=== PATIENT | male | born 1985 | race Caucasian/White ===

== ENCOUNTER 2017-05-18 20:35 | Inpatient (IN) | payer MEDICAID ==
[~2017-05-18] VITALS: Ht 198.1 cm; Wt 72.6 kg
--- NOTE | 2017-05-18 20:33 | Emergency Room Report ---
History of Present Illness General Chief Complaint: Abdominal Pain Source: Patient Present Illness HPI Patient is a 32-year-old male who presented after increased left-sided abdominal pain. Patient gradual onset of symptoms. Patient reported having a pain which did not radiate. Patient reports having prior history of ulcer disease. He stated that he had eaten some spicy food and pizza which exacerbated the pain. Patient denied any diarrhea or bloody stools. He denied hematemesis or patient reports having had an energy drink earlier in the day. Patient had a fever. He denied any leg pain or swelling. He denied any chest pain. Allergies: Coded Allergies: ERYTHROMYCIN BASE (Verified Allergy, Unknown, 05/18/17) PENICILLINS (Verified Allergy, Unknown, 05/18/17) Patient History Past Medical History: see triage record Reviewed Nursing Documentation: PMH: Agreed, PSxH: Agreed Nursing Documentation-PMH Past Medical History: No Stated History Review of Systems All Other Systems: negative except mentioned in HPI Physical Exam Vital Signs Date Time Temp Pulse Resp B/P Pulse Ox O2 Delivery O2 Flow Rate FiO2 05/18/17 20:16 98.1 82 16 120/80 98 Room Air Sp02 EP Interpretation: reviewed, normal General Appearance: normal inspection, well appearing, no apparent distress, alert, GCS 15, non-toxic Head: atraumatic ENT: normal ENT inspection, hearing grossly normal, normal voice Neck: normal inspection, full range of motion, supple, no bony tend Respiratory: normal inspection, lungs clear, normal breath sounds, no respiratory distress, no retraction, no wheezing Cardiovascular #1: regular rate, rhythm, no edema Gastrointestinal: normal inspection, non tender, soft, non-distended, no guarding, no hernia, abnormal bowel sounds - increased Genitourinary: no CVA tenderness Musculoskeletal: normal inspection, back normal, normal range of motion Neurologic: normal inspection, alert, oriented x3, responsive, 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 Differential diagnoses included ischemic bowel, appendicitis, perforated viscus, abdominal aortic aneurysm, inferior myocardial infarction, viral gastroenteritis Because of complexity of patient's case laboratory testing and imaging studies were ordered. The patient was given IV antiemetics as well as IV fluids. 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 He was noted to have intermittent PVCs. Patient was given IV magnesium. A CT imaging of the abdomen pelvis showed gastric distention. The patient noted to have some anemia on laboratory testing.Dr. Hickman was contacted for inpatient management due to need for inpatient monitoring and treatment due to persistent pain. Labs Test 05/18/17 20:55 05/19/17 00:00 White Blood Count 10.3 K/UL (4.8-10.8) Red Blood Count 3.74 M/UL (4.70-6.10) Hemoglobin 9.9 G/DL (14.2-18.0) Hematocrit 30.4 % (42.0-52.0) Mean Corpuscular Volume 81 FL (80-99) Mean Corpuscular Hemoglobin 26.5 PG (27.0-31.0) Mean Corpuscular Hemoglobin Concent 32.6 G/DL (32.0-36.0) Red Cell Distribution Width 15.8 % (11.6-14.8) Platelet Count 561 K/UL (150-450) Mean Platelet Volume 5.5 FL (6.5-10.1) Neutrophils (%) (Auto) 72.7 % (45.0-75.0) Lymphocytes (%) (Auto) 19.8 % (20.0-45.0) Monocytes (%) (Auto) 5.9 % (1.0-10.0) Eosinophils (%) (Auto) 1.0 % (0.0-3.0) Basophils (%) (Auto) 0.5 % (0.0-2.0) Sodium Level 135 mEQ/L (135-145) Potassium Level 4.2 mEQ/L (3.4-4.9) Chloride Level 94 mEQ/L (98-107) Carbon Dioxide Level 30 mEQ/L (20-30) Anion Gap 11 (5-15) Blood Urea Nitrogen 13 mg/dL (7-23) Creatinine 1.1 mg/dL (0.7-1.2) Estimat Glomerular Filtration Rate > 60 mL/min (>60) Glucose Level 138 mg/dL (74-106) Calcium Level 9.6 mg/dL (8.6-10.2) Total Bilirubin < 0.2 mg/dL (0.0-1.2) Aspartate Amino Transf (AST/SGOT) 13 U/L (5-40) Alanine Aminotransferase (ALT/SGPT) 10 U/L (3-41) Alkaline Phosphatase 64 U/L (40-129) Total Protein 7.2 g/dL (6.6-8.7) Albumin 4.5 g/dL (3.5-5.2) Globulin 2.7 g/dL Albumin/Globulin Ratio 1.6 (1.0-2.7) Lipase 26 U/L (< 60) Urine Color Pale yellow Urine Appearance Slightly cloudy Urine pH 9 (4.5-8.0) Urine Specific [place] 1.015 (1.005-1.035) Urine Protein Negative (NEGATIVE) Urine Glucose (UA) Negative (NEGATIVE) Urine Ketones Negative (NEGATIVE) Urine Occult Blood Negative (NEGATIVE) Urine Nitrite Negative (NEGATIVE) Urine Bilirubin Negative (NEGATIVE) Urine Urobilinogen Normal MG/DL (0.0-1.0) Urine Leukocyte Esterase Negative (NEGATIVE) Urine Opiates Screen Negative (NEGATIVE) Urine Barbiturates Screen Negative (NEGATIVE) Phencyclidine (PCP) Screen Negative (NEGATIVE) Urine Amphetamines Screen Positive (NEGATIVE) Urine Benzodiazepines Screen Negative (NEGATIVE) Urine Cocaine Screen Negative (NEGATIVE) Urine Marijuana (THC) Screen Negative (NEGATIVE) Last Vital Signs Date Time Temp Pulse Resp B/P Pulse Ox O2 Delivery O2 Flow Rate FiO2 05/18/17 20:16 98.1 82 16 120/80 98 Room Air Status: unchanged Disposition: ADMITTED INPATIENT Condition: Catalino Torres May 18, 2017 20:33
[2017-05-18 20:40] VITALS: BP 128/78
[2017-05-18] MEDS ORDERED: Dicyclomine HCl 10mg/5ml oral soln ORAL ONE (21:00)
[2017-05-18] MEDS ORDERED: Famotidine 20 MG/ 2ML VIAL IVP ONE (21:00)
[2017-05-18 21:09] LABS: BASOPHILS % (AUTO) 0.5 % (0.0-2.0); LYMPHOCYTES % (AUTO) 19.8 % (20.0-45.0); MEAN CORPUSCULAR HEMOGLOBIN 26.5 PG (27.0-31.0); MEAN CORPUSCULAR HGB CONC 32.6 G/DL (32.0-36.0); MEAN CORPUSCULAR VOLUME 81 FL (80-99); MEAN PLATELET VOLUME 5.5 FL (6.5-10.1); MONOCYTES % (AUTO) 5.9 % (1.0-10.0); NEUTROPHILS % (AUTO) 72.7 % (45.0-75.0); PLATELET COUNT 561 K/UL (150-450); RED BLOOD COUNT 3.74 M/UL (4.70-6.10); RED CELL DISTRIBUTION WIDTH 15.8 % (11.6-14.8); WHITE BLOOD COUNT 10.3 K/UL (4.8-10.8)
[2017-05-18 21:44] LABS: ALANINE AMINOTRANSFERASE 10 U/L (3-41); ALBUMIN/GLOBULIN RATIO 1.6 (1.0-2.7); ANION GAP 11 (5-15); ASPARTATE AMINO TRANSFERASE 13 U/L (5-40); CALCIUM 9.6 mg/dL (8.6-10.2); CARBON DIOXIDE 30 mEQ/L (20-30); CHLORIDE 94 mEQ/L (98-107); CREATININE 1.1 mg/dL (0.7-1.2); GLOMERULAR FILTRATION RATE > 60 mL/min (>60); HEMOLYSIS 5; LIPASE 26 U/L (< 60); POTASSIUM 4.2 mEQ/L (3.4-4.9); SODIUM 135 mEQ/L (135-145); TOTAL PROTEIN 7.2 g/dL (6.6-8.7)
[2017-05-18 22:00] VITALS: BP 140/69
[2017-05-18] MEDS ORDERED: Morphine Sulfate 4mg/ml Inj IVP ONE (23:45)
[2017-05-19] VITALS (8 sets, daily range): BP systolic 129–139; BP diastolic 76–96
[2017-05-19 00:44] LABS: APPEARANCE,URINE SLIGHTLY CLOUDY; KETONES,URINE NEGATIVE (NEGATIVE); LEUKOCYTE ESTERASE ,URINE NEGATIVE (NEGATIVE); NITRITE,URINE NEGATIVE (NEGATIVE); PH,URINE 9 (4.5-8.0); PROTEIN,URINE NEGATIVE (NEGATIVE); UROBILINOGEN,URINE NORMAL MG/DL (0.0-1.0)
[2017-05-19] MEDS ORDERED: NEXIUM40 MG ORAL (01:24)
[2017-05-19] MEDS: D5NS 1,000 ML IV SCH ×2 (03:49→17:37)
--- NOTE | 2017-05-19 07:51 | General Progress Note ---
Assessment/Plan Problem List: (1) Anemia ICD Codes: D64.9 - Anemia, unspecified SNOMED: 628102299 (2) Abdominal pain ICD Codes: R10.9 - Unspecified abdominal pain SNOMED: 16629812 (3) Cardiac arrhythmia ICD Codes: I49.9 - Cardiac arrhythmia, unspecified SNOMED: 358024971 Assessment/Plan fu ct report anemia work up ppi EGD in am Subjective ROS Limited/Unobtainable: Yes Allergies: Coded Allergies: ERYTHROMYCIN BASE (Verified Allergy, Unknown, 05/18/17) PENICILLINS (Verified Allergy, Unknown, 05/18/17) Subjective abd pain Objective Last 24 Hour Vital Signs Date Time Temp Pulse Resp B/P Pulse Ox O2 Delivery O2 Flow Rate FiO2 05/19/17 04:00 79 05/19/17 04:00 97.3 85 20 135/90 98 Room Air 05/19/17 02:26 97.3 05/19/17 01:50 97.3 68 16 133/78 98 Room Air 05/19/17 01:50 97.3 68 16 133/78 98 Room Air 05/19/17 01:47 98.5 74 17 132/94 98 Room Air 05/19/17 00:45 98.2 79 16 132/81 98 Room Air 05/18/17 22:00 98.4 86 19 140/69 98 Room Air 05/18/17 20:40 98.1 88 18 128/78 98 Room Air 05/18/17 20:16 98.1 82 16 120/80 98 Room Air Intake and Output 05/18/17 05/19/17 19:00 07:00 Intake Total 210 ml Balance 210 ml Intake Oral 60 ml IV Total 150 ml Laboratory Tests 05/18/17 20:55: White Blood Count 10.3, Red Blood Count 3.74L, Hemoglobin 9.9L, Hematocrit 30.4L , Mean Corpuscular Volume 81, Mean Corpuscular Hemoglobin 26.5L, Mean Corpuscular Hemoglobin Concent 32.6, Red Cell Distribution Width 15.8H, Platelet Count 561H, Mean Platelet Volume 5.5L, Neutrophils (%) (Auto) 72.7, Lymphocytes (%) (Auto) 19.8L, Monocytes (%) (Auto) 5.9, Eosinophils (%) (Auto) 1.0, Basophils (%) (Auto) 0.5, Sodium Level 135, Potassium Level 4.2, Chloride Level 94L, Carbon Dioxide Level 30, Anion Gap 11, Blood Urea Nitrogen 13, Creatinine 1.1, Estimat Glomerular Filtration Rate > 60, Glucose Level 138H, Calcium Level 9.6, Total Bilirubin < 0.2, Aspartate Amino Transf (AST/SGOT) 13, Alanine Aminotransferase (ALT/SGPT) 10, Alkaline Phosphatase 64, Total Protein 7.2, Albumin 4.5, Globulin 2.7, Albumin/Globulin Ratio 1.6, Lipase 26 05/19/17 00:00: Urine Color Pale yellow, Urine Appearance Slightly cloudy, Urine pH 9, Urine Specific [place] 1.015, Urine Protein Negative, Urine Glucose (UA) Negative, Urine Ketones Negative, Urine Occult Blood Negative, Urine Nitrite Negative, Urine Bilirubin Negative, Urine Urobilinogen Normal, Urine Leukocyte Esterase Negative, Urine Opiates Screen Negative, Urine Barbiturates Screen Negative, Phencyclidine (PCP) Screen Negative, Urine Amphetamines Screen PositiveH, Urine Benzodiazepines Screen Negative, Urine Cocaine Screen Negative, Urine Marijuana (THC) Screen Negative 05/19/17 06:50: Troponin I [Pending] Height (Feet): 6 Height (Inches): 6.00 Weight (Pounds): 160 General Appearance: alert EENT: normal ENT inspection Neck: supple Cardiovascular: normal peripheral pulses Respiratory/Chest: lungs clear Abdomen: decreased bowel sounds, tender Extremities: non-tender DIGNA REYNA May 19, 2017 07:51
[2017-05-19 08:07] LABS: TROPONIN I < 0.30 ng/mL (<=0.30)
--- NOTE | 2017-05-19 08:07 | History & Physical ---
History and Physical History & Physicial HP completed. Dictation #[id number] Tea Hickman MD May 19, 2017 08:07
[2017-05-19] MEDS: Heparin 5000 units/ml inj SUBQ SCH ×2 (09:00→21:00)
--- NOTE | 2017-05-19 09:29 | Diagnostic Imaging Report ---
Indication: Shortness of breath Technique: XRAY CHEST 1 V Comparison: None Findings: The cardiomediastinal silhouette is within normal limits. There is no focal consolidation, pneumothorax or pleural effusion. Osseous structures demonstrate no acute abnormality. Impression: No acute cardiopulmonary disease.
[2017-05-19] MEDS: Morphine Sulfate 2mg/ml Inj IVP PRN ×2 (09:43→17:49)
[2017-05-19] MEDS: Acetaminophen 500mg (ES) tab ORAL PRN ×2 (15:00→21:27)
--- NOTE | 2017-05-19 16:57 | Cardiology Report ---
APPROVED REPORT EKG Measurement Heart [id number] TN 136P51 [id number] Sinus rhythm with frequent premature ventricular complexes Rightward axis Borderline ECG
--- NOTE | 2017-05-19 16:58 | Cardiology Report ---
APPROVED REPORT EKG Measurement Heart [id number] AR 138P65 [id number] Sinus rhythm with frequent premature ventricular complexes Rightward axis Minimal voltage criteria for LVH, may be normal variant Borderline ECG
--- NOTE | 2017-05-19 22:00 | History and Physical Report ---
DATE OF ADMISSION: 05/18/2017 SOURCE OF INFORMATION: Patient and EMR. HISTORY OF PRESENT ILLNESS: The patient is a 32-year-old white male, who presented with the abdominal pain to the emergency room. The patient reported the pain is localized more on the left side, excruciating pain. The patient denies any nausea or vomitus. The patient denies any fever or chills. 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 ALLERGIES: Penicillin and azithromycin. HOME MEDICATIONS: Nexium. FAMILY HISTORY: Reviewed, noncontributory. SOCIAL HISTORY: The patient has reported social alcohol drinking and smoking. The patient denies any illicit drug abuse. REVIEW OF SYSTEMS: All 12 elements of the review of systems reviewed and pertinent negatives and positives reviewed as above. PHYSICAL EXAMINATION: VITAL SIGNS: Blood pressure 120/80, temperature 98.2 degrees, pulse oximetry 98% on room air, and respiratory rate 18. HEAD AND NECK: Positive for prior scar of prior surgery. NEUROLOGIC: The patient is sleepy. MUSCULOSKELETAL: No gross focal motor deficit. LABORATORY AND DIAGNOSTIC DATA: WBC 10.3, hemoglobin 9.9, and platelets 561,000. Sodium 135, potassium 4.2, BUN 13, and creatinine 1.1. Positive for amphetamine in the urine. Imaging is pending. ASSESSMENT: 1. Abdominal pain, nonspecific. 2. Cardiac arrhythmia, nonspecific. 3. Anemia. 4. Gastrointestinal and deep vein thrombosis prophylaxis. PLAN OF CARE: We will continue with the current GI and DVT prophylaxis. We will wait for anemia panel. Cardiology, Dr. Emerson has been consulted. We will obtain a 2D echocardiogram. Tea Hickman M.D. DR: TRINY JOB#: [id number] CC:
[2017-05-19] MEDS ORDERED: HYDROmorphone 1mg/ml Carpuject SUBQ PRN (23:30)
[2017-05-19] MEDS ORDERED: Morphine Sulfate 2mg/ml Inj IVP PRN (23:30)
[2017-05-20] VITALS (7 sets, daily range): BP systolic 97–141; BP diastolic 54–76
[2017-05-20] MEDS: D5NS 1,000 ML IV SCH (05:57)
[2017-05-20 07:08] LABS: BASOPHILS % (AUTO) 1.1 % (0.0-2.0); EOSINOPHILS % (AUTO) 2.3 % (0.0-3.0); LYMPHOCYTES % (AUTO) 32.8 % (20.0-45.0); MEAN CORPUSCULAR HEMOGLOBIN 25.4 PG (27.0-31.0); MEAN CORPUSCULAR HGB CONC 30.8 G/DL (32.0-36.0); MEAN CORPUSCULAR VOLUME 83 FL (80-99); MEAN PLATELET VOLUME 5.5 FL (6.5-10.1); MONOCYTES % (AUTO) 7.1 % (1.0-10.0); NEUTROPHILS % (AUTO) 56.8 % (45.0-75.0); PLATELET COUNT 577 K/UL (150-450); RED BLOOD COUNT 3.98 M/UL (4.70-6.10); RED CELL DISTRIBUTION WIDTH 16.8 % (11.6-14.8); WHITE BLOOD COUNT 6.7 K/UL (4.8-10.8)
[2017-05-20 07:20] LABS: ALANINE AMINOTRANSFERASE 9 U/L (3-41); ALBUMIN/GLOBULIN RATIO 1.6 (1.0-2.7); ANION GAP 11 (5-15); ASPARTATE AMINO TRANSFERASE 12 U/L (5-40); CALCIUM 9.5 mg/dL (8.6-10.2); CARBON DIOXIDE 27 mEQ/L (20-30); CHLORIDE 101 mEQ/L (98-107); CREATININE 1.1 mg/dL (0.7-1.2); GLOMERULAR FILTRATION RATE > 60 mL/min (>60); POTASSIUM 4.3 mEQ/L (3.4-4.9); SODIUM 139 mEQ/L (135-145); TOTAL PROTEIN 6.8 g/dL (6.6-8.7)
[2017-05-20 07:48] LABS: HEMOLYSIS 4; IRON 23 ug/dL (59-158); TOTAL IRON BINDING CAPACITY 407 ug/dL (250-400)
--- NOTE | 2017-05-20 08:18 | Diagnostic Imaging Report ---
Indication: Abdominal pain Technique: CT of the abdomen and pelvis utilizing automated exposure control with intravenous contrast. Venous scanning performed. CT dose: Total DLP 907 mGycm; CTDI vol 17.5 mGy Comparison: None Findings: Lung bases are clear. There is marked distention of the stomach with fluid. There is mild thickening versus underdistention of the gastric antrum. The liver, adrenal glands, spleen and pancreas are grossly unremarkable. No CT evident gallstones are identified. There is medullary hyperdensity of the bilateral kidneys. The small bowel loops are not obviously dilated. There is no definitive evidence of appendicitis. There is mild thickening versus underdistention of the rectum. Bladder is moderately distended. The abdominal aorta is normal in caliber. There is no free intraperitoneal air. The osseous structures demonstrate no acute abnormality. Impression: Limited evaluation without oral contrast. Markedly distended stomach with fluid. Nonspecific enteritis or gastroparesis not excluded. Questionable thickening versus underdistention of the gastric antrum. Peptic ulcer disease not completely excluded. Clinical correlation recommended. Further evaluation recommended as indicated. No definitive evidence of appendicitis or small bowel obstruction. Circumferential wall thickening versus underdistention of the rectum. Nonspecific proctitis not excluded. Slightly medullary hyperdensity and heterogeneous enhancement of the kidneys may be secondary to delayed contrast scanning as there is otherwise poor contrast opacification of the vessels and organs. Intrinsic renal disease not completely excluded and correlation with renal function recommended. The CT scanner at [facility] is accredited by the [employer] and the scans are performed using protocols designed to limit radiation exposure to as low as reasonably achievable to attain images of sufficient resolution adequate for diagnostic evaluation.
[2017-05-20] MEDS ORDERED: Propofol 10mg/ml 20ml IV ONE (09:00)
[2017-05-20] MEDS ORDERED: fentaNYL 100 mcg/2 mL IV ONE (09:00)
[2017-05-20] MEDS ORDERED: LR 1000ml ONE (09:00)
[2017-05-20] MEDS ORDERED: Midazolam 2mg/2ml Inj ONE (09:00)
[2017-05-20] MEDS: Heparin 5000 units/ml inj SUBQ SCH (09:00)
[2017-05-20] MEDS ORDERED: NS 550ML IV ONE (09:05)
--- NOTE | 2017-05-20 09:05 | Pre-Procedure Note/Attestation ---
Pre-Procedure Note/Attestation Complete Prior to Procedure Planned Procedure: not applicable Procedure Narrative: egd Indications for Procedure Pre-Operative Diagnosis: iron def anemia Attestation I attest that I discussed the nature of the procedure; its benefits; risks and complications; and alternatives (and the risks and benefits of such alternatives ), prior to the procedure, with the patient (or the patient's legal home furnishings sales representative). I attest that, if there was a reasonable possibility of needing a blood transfusion, the patient (or the patient's legal home furnishings sales representative) was given the [facility] standardized written summary, pursuant to the [place] Blood Safety Act ([place] Health and Safety Code # 1645, as amended). I attest that I re-evaluated the patient just prior to the surgery and that there has been no change in the patient's H&P, except as documented below: DIGNA REYNA May 20, 2017 09:05
--- NOTE | 2017-05-20 09:20 | Endoscopy Procedure Note ---
Endoscopy Procedure Note Indication for Procedure: gib Procedures Performed: EGD Operative Findings/Diagnosis: DuodeNAL ULCER Specimen: yes Anesthesiologist: see chart Anesthesia: MAC Implant(s) used?: No 50 yrs or older w/o bx or poly: Not Applicable 10yrs. F/U not recommended: Not Applicable DIGNA REYNA May 20, 2017 09:20
--- NOTE | 2017-05-20 09:20 | Anethesia Preoperative Eval ---
Anesthesia Pre-op PMH/ROS General Date of Evaluation: May 20, 2017 Time of Evaluation: 09:02 Anesthesiologist: TONYA ASA Score: ASA 2 Mallampati Score Class I : Soft palate, uvula, fauces, pillars visible Class II: Soft palate, uvula, fauces visible Class III: Soft palate, base of uvula visible Class IV: Only hard plate visible Mallampati Classification: Class II Surgeon: Horace Diagnosis: abd pain Surgical Procedure: EGD Anesthesia History: none Family History: no anesthesia problems Allergies: Coded Allergies: ERYTHROMYCIN BASE (Verified Allergy, Unknown, 05/18/17) PENICILLINS (Verified Allergy, Unknown, 05/18/17) Medications: see eMAR Anesthesia Pre-op Phys. Exam Physician Exam Last Vital Signs Date Time Temp Pulse Resp B/P Pulse Ox O2 Delivery O2 Flow Rate FiO2 05/20/17 08:00 97.5 79 19 116/54 98 Room Air Constitutional: NAD Neurologic: CN 2-12 intact Cardiovascular: RRR Respiratory: CTA Airway Exam Mallampati Score: Class II MO: full ROM: full Teeth: intact Anesthesia Pre-op A/P Labs Hematology Test 05/20/17 05:45 White Blood Count 6.7 K/UL (4.8-10.8) Red Blood Count 3.98 M/UL (4.70-6.10) L Hemoglobin 10.1 G/DL (14.2-18.0) L Hematocrit 32.9 % (42.0-52.0) L Mean Corpuscular Volume 83 FL (80-99) Mean Corpuscular Hemoglobin 25.4 PG (27.0-31.0) L Mean Corpuscular Hemoglobin Concent 30.8 G/DL (32.0-36.0) L Red Cell Distribution Width 16.8 % (11.6-14.8) H Platelet Count 577 K/UL (150-450) H Mean Platelet Volume 5.5 FL (6.5-10.1) L Neutrophils (%) (Auto) 56.8 % (45.0-75.0) Lymphocytes (%) (Auto) 32.8 % (20.0-45.0) Monocytes (%) (Auto) 7.1 % (1.0-10.0) Eosinophils (%) (Auto) 2.3 % (0.0-3.0) Basophils (%) (Auto) 1.1 % (0.0-2.0) Coagulation Test 05/20/17 05:45 Prothrombin Time 10.0 SEC (9.30-11.50) Prothromb Time International Ratio 1.0 (0.9-1.1) Activated Partial Thromboplast Time 27 SEC (23-33) Chemistry Test 05/20/17 05:45 Sodium Level 139 mEQ/L (135-145) Potassium Level 4.3 mEQ/L (3.4-4.9) Chloride Level 101 mEQ/L (98-107) Carbon Dioxide Level 27 mEQ/L (20-30) Anion Gap 11 (5-15) Blood Urea Nitrogen 9 mg/dL (7-23) Creatinine 1.1 mg/dL (0.7-1.2) Estimat Glomerular Filtration Rate > 60 mL/min (>60) Glucose Level 101 mg/dL (74-106) Calcium Level 9.5 mg/dL (8.6-10.2) Iron Level 23 ug/dL (59-158) L Total Iron Binding Capacity 407 ug/dL (250-400) H Percent Iron Saturation 6 % (15-50) L Unsaturated Iron Binding 384 ug/dL (112-346) H Total Bilirubin < 0.2 mg/dL (0.0-1.2) Aspartate Amino Transf (AST/SGOT) 12 U/L (5-40) Alanine Aminotransferase (ALT/SGPT) 9 U/L (3-41) Alkaline Phosphatase 64 U/L (40-129) Total Protein 6.8 g/dL (6.6-8.7) Albumin 4.2 g/dL (3.5-5.2) Globulin 2.6 g/dL Albumin/Globulin Ratio 1.6 (1.0-2.7) Carcinoembryonic Antigen 1.5 ng/mL Risk Assessment & Plan Status Change Before Surgery: No Pre-Antibiotics Given Within 1 Hr of Incision: Anibal Almanza M.D. May 20, 2017 09:20
--- NOTE | 2017-05-20 09:22 | Immediate Post-Op Evaluation ---
Immediate Post-Op Evalulation Immediate Post-Op Evalulation Procedure: EGD Date of Evaluation: May 20, 2017 Time of Evaluation: 09:32 IV Fluids: 100 Blood Products: 0 Estimated Blood Loss: 0 Urinary Output: 0 Blood Pressure Systolic: 103 Blood Pressure Diastolic: 74 Pulse Rate: 107 Respiratory Rate: 14 O2 Sat by Pulse Oximetry: 100 Temperature (Fahrenheit): 99 Pain Score (1-10): 0 Nausea: No Vomiting: No Patient Status: awake, reacts, patent Hydration Status: adequate Given Within 1 Hr of Incision: Anibal Almanza M.D. May 20, 2017 09:22
--- NOTE | 2017-05-20 09:23 | 48 Hour Post Anesthesia Eval ---
Post Anesthesia Evaluation Procedure: EGD Date of Evaluation: May 22, 2017 Time of Evaluation: 08:00 Blood Pressure Systolic: 105 0: 78 Pulse Rate: 79 Respiratory Rate: 14 Temperature (Fahrenheit): 97 O2 Sat by Pulse Oximetry: 100 Airway: patent Nausea: No Vomiting: No Pain Intensity: 0 Hydration Status: adequate Mental Status/LOC: patient returned to baseline Follow-up care needed: patient intructions given Anibal Malik M.D. May 20, 2017 09:23
--- NOTE | 2017-05-20 09:28 | Cardiology Progress Note ---
Assessment/Plan Assessment/Plan The patient is seen and examined, full consult note is dictated. Objective Last 24 Hour Vital Signs Date Time Temp Pulse Resp B/P Pulse Ox O2 Delivery O2 Flow Rate FiO2 05/20/17 09:23 79 14 100 05/20/17 09:22 107 14 100 05/20/17 08:00 97.5 79 19 116/54 98 Room Air 05/20/17 04:00 97.2 75 20 114/71 99 Room Air 05/20/17 04:00 78 05/20/17 00:00 74 05/20/17 00:00 97.2 67 20 141/76 99 Room Air 05/19/17 23:59 97.2 05/19/17 22:26 97.2 05/19/17 20:00 97 05/19/17 20:00 97.2 54 16 138/76 99 Room Air 05/19/17 18:19 96.8 05/19/17 16:00 82 05/19/17 15:37 96.8 56 20 139/96 100 Room Air 05/19/17 12:00 84 05/19/17 11:33 97.1 88 20 133/93 96 Room Air Intake and Output 05/19/17 05/20/17 19:00 07:00 Intake Total 1525 ml 900 ml Output Total 2350 ml Balance -825 ml 900 ml Intake Oral 1450 ml IV Total 75 ml 900 ml Output Urine Total 2350 ml Laboratory Tests Test 05/19/17 17:52 05/20/17 05:45 Urine Opiates Screen Positive (NEGATIVE) H Urine Barbiturates Screen Negative (NEGATIVE) Phencyclidine (PCP) Screen Negative (NEGATIVE) Urine Amphetamines Screen Positive (NEGATIVE) H Urine Benzodiazepines Screen Negative (NEGATIVE) Urine Cocaine Screen Negative (NEGATIVE) Urine Marijuana (THC) Screen Negative (NEGATIVE) White Blood Count 6.7 K/UL (4.8-10.8) Red Blood Count 3.98 M/UL (4.70-6.10) L Hemoglobin 10.1 G/DL (14.2-18.0) L Hematocrit 32.9 % (42.0-52.0) L Mean Corpuscular Volume 83 FL (80-99) Mean Corpuscular Hemoglobin 25.4 PG (27.0-31.0) L Mean Corpuscular Hemoglobin Concent 30.8 G/DL (32.0-36.0) L Red Cell Distribution Width 16.8 % (11.6-14.8) H Platelet Count 577 K/UL (150-450) H Mean Platelet Volume 5.5 FL (6.5-10.1) L Neutrophils (%) (Auto) 56.8 % (45.0-75.0) Lymphocytes (%) (Auto) 32.8 % (20.0-45.0) Monocytes (%) (Auto) 7.1 % (1.0-10.0) Eosinophils (%) (Auto) 2.3 % (0.0-3.0) Basophils (%) (Auto) 1.1 % (0.0-2.0) Prothrombin Time 10.0 SEC (9.30-11.50) Prothromb Time International Ratio 1.0 (0.9-1.1) Activated Partial Thromboplast Time 27 SEC (23-33) Sodium Level 139 mEQ/L (135-145) Potassium Level 4.3 mEQ/L (3.4-4.9) Chloride Level 101 mEQ/L (98-107) Carbon Dioxide Level 27 mEQ/L (20-30) Anion Gap 11 (5-15) Blood Urea Nitrogen 9 mg/dL (7-23) Creatinine 1.1 mg/dL (0.7-1.2) Estimat Glomerular Filtration Rate > 60 mL/min (>60) Glucose Level 101 mg/dL (74-106) Calcium Level 9.5 mg/dL (8.6-10.2) Iron Level 23 ug/dL (59-158) L Total Iron Binding Capacity 407 ug/dL (250-400) H Percent Iron Saturation 6 % (15-50) L Unsaturated Iron Binding 384 ug/dL (112-346) H Total Bilirubin < 0.2 mg/dL (0.0-1.2) Aspartate Amino Transf (AST/SGOT) 12 U/L (5-40) Alanine Aminotransferase (ALT/SGPT) 9 U/L (3-41) Alkaline Phosphatase 64 U/L (40-129) Total Protein 6.8 g/dL (6.6-8.7) Albumin 4.2 g/dL (3.5-5.2) Globulin 2.6 g/dL Albumin/Globulin Ratio 1.6 (1.0-2.7) Carcinoembryonic Antigen 1.5 ng/mL Helicobacter pylori IgG Antibody Pending Hepatitis A IgM Antibody Pending Hepatitis B Surface Antigen Pending Hepatitis B Core IgM Antibody Pending Hepatitis C Antibody Pending TRAVIS SAHU May 20, 2017 09:28
[2017-05-20] MEDS ORDERED: Metoclopramide 10mg/2ml Inj IVP PRN (09:30)
[2017-05-20] MEDS ORDERED: fentaNYL 100 mcg/2 mL IV PRN (09:30)
[2017-05-20] MEDS ORDERED: D5NS 1000ml IV ONE (10:08)
--- NOTE | 2017-05-20 10:18 | General Progress Note ---
Assessment/Plan Status: stable Assessment/Plan 1. Acute Epigastric bdominal pain, 2. PUR 2. Cardiac arrhythmia, nonspecific. 3. Anemia- Iron deficiency type 4. Gastrointestinal and deep vein thrombosis prophylaxis. 5. Substance Abuse Plan: Start Iron supplementation Ok to followup as out patient , once Ok by GI Subjective ROS Limited/Unobtainable: No Constitutional: Reports: weakness HEENT: Reports: no symptoms Cardiovascular: Reports: no symptoms Allergies: Coded Allergies: ERYTHROMYCIN BASE (Verified Allergy, Unknown, 05/18/17) PENICILLINS (Verified Allergy, Unknown, 05/18/17) Objective Last 24 Hour Vital Signs Date Time Temp Pulse Resp B/P Pulse Ox O2 Delivery O2 Flow Rate FiO2 05/20/17 09:46 91 20 109/70 100 Room Air 05/20/17 09:32 90 20 102/69 100 Room Air 05/20/17 09:27 97.8 90 20 97/73 100 Nasal Cannula 2.0 05/20/17 09:23 79 14 100 05/20/17 09:22 107 14 100 05/20/17 08:00 97.5 79 19 116/54 98 Room Air 05/20/17 04:00 97.2 75 20 114/71 99 Room Air 05/20/17 04:00 78 05/20/17 00:00 74 05/20/17 00:00 97.2 67 20 141/76 99 Room Air 05/19/17 23:59 97.2 05/19/17 22:26 97.2 05/19/17 20:00 97 05/19/17 20:00 97.2 54 16 138/76 99 Room Air 05/19/17 18:19 96.8 05/19/17 16:00 82 05/19/17 15:37 96.8 56 20 139/96 100 Room Air 05/19/17 12:00 84 05/19/17 11:33 97.1 88 20 133/93 96 Room Air Intake and Output 05/19/17 05/20/17 19:00 07:00 Intake Total 1525 ml 900 ml Output Total 2350 ml Balance -825 ml 900 ml Intake Oral 1450 ml IV Total 75 ml 900 ml Output Urine Total 2350 ml Laboratory Tests 05/19/17 17:52: Urine Opiates Screen PositiveH, Urine Barbiturates Screen Negative, Phencyclidine (PCP) Screen Negative, Urine Amphetamines Screen PositiveH, Urine Benzodiazepines Screen Negative, Urine Cocaine Screen Negative, Urine Marijuana (THC) Screen Negative 05/20/17 05:45: White Blood Count 6.7, Red Blood Count 3.98L, Hemoglobin 10.1L, Hematocrit 32.9L , Mean Corpuscular Volume 83, Mean Corpuscular Hemoglobin 25.4L, Mean Corpuscular Hemoglobin Concent 30.8L, Red Cell Distribution Width 16.8H, Platelet Count 577H, Mean Platelet Volume 5.5L, Neutrophils (%) (Auto) 56.8, Lymphocytes (%) (Auto) 32.8, Monocytes (%) (Auto) 7.1, Eosinophils (%) (Auto) 2.3, Basophils (%) (Auto) 1.1, Prothrombin Time 10.0, Prothromb Time International Ratio 1.0, Activated Partial Thromboplast Time 27, Sodium Level 139, Potassium Level 4.3, Chloride Level 101, Carbon Dioxide Level 27, Anion Gap 11, Blood Urea Nitrogen 9, Creatinine 1.1, Estimat Glomerular Filtration Rate > 60, Glucose Level 101, Calcium Level 9.5, Iron Level 23L, Total Iron Binding Capacity 407H, Percent Iron Saturation 6L, Unsaturated Iron Binding 384H , Total Bilirubin < 0.2, Aspartate Amino Transf (AST/SGOT) 12, Alanine Aminotransferase (ALT/SGPT) 9, Alkaline Phosphatase 64, Total Protein 6.8, Albumin 4.2, Globulin 2.6, Albumin/Globulin Ratio 1.6, Carcinoembryonic Antigen 1.5, Helicobacter pylori IgG Antibody [Pending], Hepatitis A IgM Antibody [ Pending], Hepatitis B Surface Antigen [Pending], Hepatitis B Core IgM Antibody [ Pending], Hepatitis C Antibody [Pending] Height (Feet): 6 Height (Inches): 6.00 Weight (Pounds): 160 General Appearance: WD/WN EENT: PERRL/EOMI Neck: supple Cardiovascular: normal rate Respiratory/Chest: lungs clear Abdomen: soft Extremities: non-tender Neurologic: reconciliation manager II-XII grossly normal Tea Hickman MD May 20, 2017 10:18
--- NOTE | 2017-05-20 11:01 | Procedure Note ---
DATE OF PROCEDURE: 05/20/2017 SURGEON: Gamaliel Vu M.D. PROCEDURE: Upper endoscopy with biopsy. ANESTHESIOLOGIST: Please see anesthesia sheet. INSTRUMENT: Olympus adult flexible upper endoscope. INDICATION: Upper GI bleeding and iron deficiency anemia. REASON FOR PROCEDURE: The procedure, risks, benefits, and possible consequences, including hemorrhage, aspiration, perforation and infection, and alternative treatments, were explained to the patient/legal guardian by Dr. Gamaliel Vu and the patient/legal guardian understood and accepted these risks. DESCRIPTION OF PROCEDURE: After informed consent was obtained and the patient was adequately sedated, the Olympus upper endoscope was advanced from mouth into the second portion of duodenum and retroflexion was performed in the stomach. The patient has history of distal esophagitis . In the stomach, there was diffuse gastritis. Random biopsy from antrum was obtained to rule out H. pylori infection. The patient has a large duodenal ulceration in the duodenal bulb, without any active bleeding at this time. No adherent clot. No visible vessel. SUMMARY OF FINDINGS: 1. Esophagitis. 2. Gastritis, status post biopsy. 3. Large duodenal ulcerations. PLAN: 1. Continue on PPI. 2. Follow up biopsy results. 3. Follow H. pylori serology. 4. Avoid NSAIDS. 5. Advance diet to full liquid diet. I want to thank, Dr. Hickman, for this kind referral. Gamaliel Vu M.D. DR: FRANK JOB#: [id number] CC: Tea Hickman M.D.; Fax#: [phone]
--- NOTE | 2017-05-20 11:54 | Cardiology Report ---
APPROVED REPORT EXAM: Two-dimensional and M-mode echocardiogram with Doppler and color Doppler. INDICATION Arrhythmia M-Mode DIMENSIONS IVSd1.1 (0.7-1.1cm)Left Atrium (MM)2.8 (1.6-4.0cm) LVDd4.7 (3.5-5.6cm)Aortic Root3.6 (2.0-3.7cm) PWd1.1 (0.7-1.1cm)Aortic Cusp Exc.2.1 (1.5-2.0cm) LVDs3.9 (2.5-4.0cm) PWs1.3 cm Normal left ventricular chamber size with mild global hypokinesis. Left ventricular ejection fraction estimated to be 50%. No evidence of left ventricular hypertrophy. No evidence of pericardial fat or effusion. Mild bi-atrial enlargement by 2D. Focal aortic valve sclerosis with adequate cusp excursion Thickened mitral valve leaflets with normal excursion. Mitral annulus and aortic root calcification. Pulmonic valve is well visualized. Normal tricuspid valve structure. IVC is normal in size with physiological collapse. A color flow and spectral Doppler study was performed and revealed: No aortic regurgitation. Trace mitral regurgitation. Normal left ventricular diastolic function. Mild tricuspid regurgitation. Tricuspid systolic velocities suggests peak right ventricular systolic pressure of 21 mmHg Pulmonic regurgitation present.
[2017-05-20] MEDS ORDERED: FEOSOL1 TAB ORAL (14:37)
[2017-05-20] MEDS ORDERED: OMEPRAZOLE40 M1 ORAL ×2 (14:38→14:39)
[2017-05-20] MEDS ORDERED: PROTONIX40 M2 GT (14:40)
[2017-05-20] MEDS ORDERED: CARAFATE1 GM/10 M1 ORAL (14:40)
[2017-05-20] MEDS ORDERED: Iron Sucrose 100 MG in NS 55 ML IV SCH (21:00)
--- NOTE | 2017-05-20 23:00 | Consultation ---
DATE OF CONSULTATION: 05/20/2017 CARDIOLOGY CONSULTATION CONSULTING PHYSICIAN: Frank Emerson M.D. REFERRING PHYSICIAN: Tea Hickman M.D. REASON FOR CONSULTATION: Management of premature ventricular complexes on the 12-lead electrocardiogram. HISTORY OF PRESENT ILLNESS: The patient is a very unfortunate 32-year-old gentleman who presents to the hospital with increased left-sided abdominal pain. He underwent workup in the emergency department and was found to have abdominal pain possibly gastritis versus peptic ulcer disease as he has a history of peptic ulcer in the past. A Cardiology consultation was made at the request of Dr. Hickman as he had shown frequent ventricular premature complexes on the 12-lead electrocardiogram. A 12-lead electrocardiogram obtained in the emergency department had shown sinus rhythm with frequent premature ventricular contractions, heart rate of 77, rightward axis, and voltage criteria for left ventricular hypertrophy. The patient's initial vitals were normal. The patient was admitted to telemetry for further evaluation and assessment of abdominal pain and treatment of the cardiac arrhythmias. PAST MEDICAL HISTORY: Peptic ulcer disease. PAST SURGICAL HISTORY: None. MEDICATIONS: Reconciled and reviewed. ALLERGIES: Erythromycin and penicillin. FAMILY HISTORY: The patient did not have any premature coronary artery disease or in the family. REVIEW OF SYSTEMS: A 12-system review done essentially negative except what mentioned in the history of present illness. That was mainly due to abdominal pain and discomfort. He denied any chest pain, shortness of breath, palpitation, PND, orthopnea, or leg swelling from cardiac standpoint. PHYSICAL EXAMINATION: VITAL SIGNS: Blood pressure was 120/80, pulse of 82, respirations of 16, temperature of 98.1 degrees Fahrenheit, and O2 saturation of 98%. GENERAL: The patient is a very pleasant 32-year-old gentleman, in no apparent respiratory distress. Alert and oriented x4. HEENT: Atraumatic and normocephalic. Anicteric. Pupils are equal, round, and reactive to light and accommodation. Extraocular muscles intact. NECK: JVP less than 5 cm. No carotid bruits. Carotid upstroke is 2+ bilaterally. CARDIOVASCULAR: Normal S1 and S2. Regular rate and rhythm. No murmurs, gallops, or rubs. PMI is at fourth intercostal space in the midclavicular line. LUNGS: Clear to auscultation bilaterally. ABDOMEN: Soft, nontender, and nondistended. No hepatosplenomegaly. Positive bowel sounds. EXTREMITIES: No evidence of edema, clubbing, or cyanosis. LABORATORY FINDINGS: WBC 10.3, hemoglobin 9.9, hematocrit of 30.4, and platelet count is 561,000. Sodium 135, potassium 4.2, chloride 94, bicarbonate 30, BUN 13, creatinine 1.1, and glucose 138. Calcium is 9.6. Lipase 26. Urine screen test showed presence of amphetamines. Chest x-ray showed no acute cardiopulmonary disease. ASSESSMENT AND PLAN: The patient is a very pleasant 32-year-old gentleman seen in Cardiology consultation at the request of Dr. Hickman. 1. Frequent ventricular premature complexes. The patient is asymptomatic. With this condition, I would consider beta-blockers, in particular metoprolol after gastrointestinal workup is complete. The patient is scheduled for workup including endoscopy. A 2D echocardiography has shown normal left ventricular systolic function with left ventricular ejection fraction of about 60% and moderate left ventricular hypertrophy. There was no evidence of wall motion abnormalities. The patient will benefit from magnesium sulfate administration, which will be considered after endoscopic procedure. 2. History of peptic ulcer disease. 3. Abdominal pain. workup is in progress. 4. Anemia. Recommend Hematology consult. I would like to thank, Dr. Hickman, for allowing me to participate in the care of this patient. Frank Emerson M.D. DR: BENJAMIN JOB#: [id number] CC:
--- NOTE | 2017-05-22 10:07 | Discharge Summary ---
Discharge Summary Hospital Course Date of Admission May 18, 2017 at 23:12 Date of Discharge May 20, 2017 at 14:55 Admitting Diagnosis abdominal pain, PUD HPI Narciso Snell is a 32 year old male who was admitted on May 18, 2017 at 23:12 for Abdominal Pain/Peptic Ulcer Disease Hospital Course dc summary #[id number] Discharge Medications Continued Medications: Ferrous Sulfate (Ferrous Sulfate) 325 Mg Tablet 1 TAB ORAL TID, TAB 0 Refills Omeprazole (Omeprazole) 40 Mg Capsule.dr 40 MG ORAL TWICE A DAY, CAP Sucralfate (Carafate) 1 Gm/10 Ml Oral.susp 1 GM ORAL TWICE A DAY, ML Discontinued Medications: Esomeprazole Magnesium (Nexium) 40 Mg Capsule.dr 30 MG ORAL DAILY, CAP Pantoprazole Sodium (Protonix) 40 Mg Granpkt.dr 40 MG GT DAILY, PKT Discharge Condition Upon Discharge: stable Discharge Disposition Patient was discharged to Home (01) Discharge Diagnoses: Discharge Instructions Discharge Instructions Special Instructions I have been assigned to complete a D/C Summary on this account. I was not involved in the patient management Edy ChinThao mckeon NP May 22, 2017 10:07
--- NOTE | 2017-05-22 12:16 | Discharge Summary 2 SIG ---
DATE OF ADMISSION: 05/18/2017 DATE OF DISCHARGE: 05/20/2017 REASON FOR ADMISSION: 32-year-old male came to the emergency room with complaint of b abdominal pain. The pain was localized on the left side , was acute, nonradiating. He denied nausea, vomiting, or diarrhea. No blood in stool. He denied chest pain, shortness of breath, fever, or chills. WBC -10.3, hemoglobin - 9.9, hematocrit -30.4. LFT and lipase were both within normal limits.Urine tox screen was positive for opiates and amphetamine. Urinalysis was negative for any evidence of UTI. EKG revealed sinus rhythm with frequent PVC. The patient was admitted for further management. ADMITTING DIAGNOSES: 1. Acute abdominal pain. 2. Anemia 3. Possible gastrointestinal bleeding. 4. Cardiac arrhythmia/frequent premature ventricular contraction. HOSPITAL COURSE: The patient was admitted. CT of the abdomen and pelvis revealed markedly distended stomach with fluid. Nonspecific enteritis or gastroparesis was not excluded. Peptic ulcer disease was not completely excluded. No definite evidence of appendicitis or small bowel obstruction. GI consult was requested. Subsequently, the patient undergone EGD on 05/20/2017 , which revealed gastritis, duodenitis , and duodenal ulcer. The patient was on PPI. Recommended to avoid nonsteroid antiinflammatory drugs. Diet was slowly advanced. Patient was able to tolerate diet. Pain management provided. Biopsy result back this morning and revealed H pylori infection. The patient will be contacted by GI specialist for further management. Cardiology seen the patient due to the frequent PVC. The patient was asymptomatic with this condition. Cafe Team Member stated that he may consider a beta-chace in particular metoprolol after gastrointestinal workup concluded. Echocardiogram revealed ejection fraction of 60% and moderate left ventricular hypertrophy. No evidence of wall motion abnormality. Anemia workup revealed iron deficiency anemia. The patient status post Venofer. Hemoglobin and hematocrit remained stable. Hepatitis panel revealed evidence of hepatitis C infection . Recommended outpatient treatment with GI specialist. DVT and GI prophylaxis provided. The patient was counseled on abstinence from the street drugs. Pain was controlled. The patient was able to tolerate diet. The patient was discharged. DISCHARGE DIAGNOSES: 1. Duodenal ulcer. 2. Gastritis. 3. Duodenitis. 4. Helicobacter pylori infection. 5. Acute abdominal pain likely due to peptic ulcer disease. 6. Gastrointestinal bleeding. 7. Iron-deficiency anemia. 8. Cardiac arrhythmia with frequent PVC. 9. Amphetamine abuse. 10. Hepatitis C status. DISCHARGE MEDICATIONS: See medication reconciliation list. DISCHARGE INSTRUCTIONS: The patient was discharged home. Follow up with primary medical doctor. The patient was counseled on abstinence from street drugs. The patient will be contacted by GI for further management of H pylori. Tea Hickman M.D. I have been assigned to dictate discharge summary on this account and I was not involved in the patient's management. hTao Chinmike N.PAlana DR: MARIO JOB#: [id number] CC: DANIELLA
== END 2017-05-20 14:55 | disposition home or self-care (01) | DRG 241 ==
LOC: EDBD 20:35 → EMR 20:40 → 2E 23:12 → EDBEDREQ 05-19 00:56
PROC: 0DB68ZX Excision of Stomach, Via Natural or Artificial Opening Endoscopic, Diagnostic (ICD-10-PCS; principal; 2017-05-20 09:13)
DX: K26.9 Duodenal ulcer, unspecified as acute or chronic, without hemorrhage or perforation (principal); F15.10 Other stimulant abuse, uncomplicated; K20.9 Esophagitis, unspecified; D50.9 Iron deficiency anemia, unspecified; B96.81 Helicobacter pylori [H. pylori] as the cause of diseases classified elsewhere; K29.70 Gastritis, unspecified, without bleeding; I49.9 Cardiac arrhythmia, unspecified; K92.2 Gastrointestinal hemorrhage, unspecified; B19.20 Unspecified viral hepatitis C without hepatic coma; Z88.0 Allergy status to penicillin
CPT/HCPCS: 36415; 71010; 74177; 80053; 80300; 81003; 82378; 83540; 83550; 83690; 84484; 85025; 85610; 85730; 86677; 86705; 86709; 86803; 87340; 93005; 93306; 94003; 94150; J2250; J2405